=== PATIENT | male | born 1995 | race Caucasian/White ===

== ENCOUNTER 2017-01-06 02:20 | Emergency (ER) | payer OTHER ==
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
[2017-01-06 04:09] VITALS: BP 135/86; PULSE 99; RESP 20; TEMP 99.3; O2SAT 97
== END 2017-01-06 04:08 | disposition home or self-care (01) ==
PROC: 0CQ0XZZ Repair Upper Lip, External Approach (ICD-10-PCS; principal; 2017-01-06)
DX: S01.511A Laceration without foreign body of lip, initial encounter (principal); Y04.0XXA Assault by unarmed brawl or fight, initial encounter